=== PATIENT | female | born 1990 | race Caucasian/White ===

== ENCOUNTER 2018-12-27 05:26 | Inpatient (IN) | payer MEDICAID ==
[~2018-12-27] VITALS: Ht 172.7 cm; Wt 105.7 kg
[2018-12-27] VITALS (34 sets, daily range): BP systolic 4–135; BP diastolic -6–99
[~2018-12-27 05:26] MED LIST: LACTATED RINGERS 1,000 ML IV SCH
[2018-12-27] MEDS ORDERED: EPHEDRINE SULFATE 50MG/ML VIAL ONE (06:24)
[2018-12-27] MEDS ORDERED: LIDOCAINE HCL/PF 1% 10 MG/ML 5ML VIAL ONE (06:24)
[2018-12-27] MEDS ORDERED: PHENYLEPHRINE HCL 10 MG/ML 1ML (IV VIAL) IV ONE (06:24)
[2018-12-27] MEDS ORDERED: SODIUM CHLORIDE 0.9% 10ML VIAL ONE ×2 (06:24→06:39)
[2018-12-27] MEDS ORDERED: CEFAZOLIN SODIUM 1000MG/VIAL ONE (06:24)
[2018-12-27] MEDS ORDERED: PROPOFOL 200MG/20ML VIAL IV ONE ×2 (06:24→07:31)
[2018-12-27] MEDS ORDERED: SUCCINYLCHOLINE CHLORIDE 200MG/10ML IV ONE (06:24)
[2018-12-27] MEDS ORDERED: ROCURONIUM BROMIDE 10MG/ML VIAL 5ML IV ONE ×2 (06:25→07:42)
[2018-12-27] MEDS ORDERED: MIDAZOLAM HCL 2 MG/2 ML VIAL ONE (06:25)
[2018-12-27] MEDS ORDERED: FENTANYL CITRATE/PF 50MCG/ML 2ML VIAL ONE ×2 (06:25→07:55)
[2018-12-27 06:26] LABS: CLARITY URINE CLEAR (CLEAR); COLOR URINE YELLOW (YELLOW); KETONES URINE NEGATIVE (NEGATIVE); LEUKOCYTE ESTERASE URINE NEGATIVE (NEGATIVE); NITRITE URINE NEGATIVE (NEGATIVE); OCCULT BLOOD URINE NEGATIVE (NEGATIVE); PH URINE 6.5 (4.5-8.0); PROTEIN URINE NEGATIVE (NEGATIVE); SPECIFIC GRAVITY URINE 1.009 (1.005-1.030); UROBILINOGEN URINE 0.2 E.U./dL (0.2-1.0)
[2018-12-27] MEDS ORDERED: BACITRACIN 15GM TUBE TOP ONE (06:28)
[2018-12-27] MEDS ORDERED: LIDOCAINE HCL/EPINEPHRINE 1%-EPI 1:100,000 20 ML VIAL ONE (06:29)
[2018-12-27] MEDS ORDERED: BACITRACIN 50,000 UNITS/VIAL ONE (06:29)
[2018-12-27] MEDS ORDERED: NORMAL SALINE 0.9% 10 ML SYR ONE (06:29)
[2018-12-27] MEDS ORDERED: THROMBIN (BOVINE) 5000 UNITS/VIAL TOP ONE (06:29)
[2018-12-27 06:37] LABS: UCG SCREEN NEGATIVE
[2018-12-27] MEDS ORDERED: HYDRALAZINE 20MG/ML VIAL ONE (06:39)
[2018-12-27] MEDS ORDERED: LABETALOL HCL 5MG/ML VIAL 20ML IV ONE (06:40)
[2018-12-27] MEDS ORDERED: ONDANSETRON HCL 4MG/2ML INJ IV PRN (07:00)
[2018-12-27] MEDS ORDERED: MORPHINE SULFATE 4 MG/ML CPJ (NOT FOR IM USE) IV PRN (07:00)
[2018-12-27] MEDS ORDERED: LURA40TA PO (07:35)
[2018-12-27] MEDS ORDERED: METH-612 PO (07:35)
[2018-12-27] MEDS ORDERED: HYDR-459 PO (07:35)
[2018-12-27] MEDS ORDERED: DULO60CA44 PO (07:35)
[2018-12-27] MEDS ORDERED: TOPI50TA PO (07:35)
[2018-12-27] MEDS ORDERED: DEXAMETHASONE 4MG/ML 1ML VIAL ONE (07:35)
[2018-12-27] MEDS ORDERED: GABA-531 PO (07:35)
[2018-12-27] MEDS ORDERED: TRAM50TA3 PO (07:35)
[2018-12-27] MEDS ORDERED: GABA-290 PO (07:35)
[2018-12-27] MEDS ORDERED: BUSP10TA3 PO (07:35)
[2018-12-27] MEDS ORDERED: ONDANSETRON HCL 4MG/2ML INJ ONE (08:02)
[2018-12-27] MEDS ORDERED: METOCLOPRAMIDE HCL 10MG/2ML VIAL ONE (08:02)
[2018-12-27] MEDS ORDERED: GLYCOPYRROLATE 0.2 MG/ML 2ML VIAL ONE (08:33)
[2018-12-27] MEDS ORDERED: NEOSTIGMINE METHYLSULFATE 1MG/ML 10 ML VIAL ONE (08:33)
[2018-12-27] MEDS ORDERED: ESMOLOL HCL 10MG/ML 10ML VIAL IV ONE (08:38)
[2018-12-27] MEDS ORDERED: NICARDIPINE 100 MG in SODIUM CHLORIDE 0.9% 60 ML IV PRN (10:00)
[2018-12-27] MEDS ORDERED: IPRATROPIUM/ALBUTEROL 0.5-3(2.5)MG/3ML NEB HHN PRN (10:00)
[2018-12-27] MEDS: DEXT 5%/LACTATED RINGERS 1,000 ML IV SCH ×2 (10:02→17:12)
[2018-12-27] MEDS: IPRATROPIUM/ALBUTEROL 0.5-3(2.5)MG/3ML NEB HHN SCH ×4 (10:02→20:57)
[2018-12-27] MEDS ORDERED: IPRATROPIUM/ALBUTEROL 0.5-3(2.5)MG/3ML NEB ONE (10:03)
[2018-12-27] MEDS ORDERED: DIPHENHYDRAMINE INJ IV PRN (10:15)
[2018-12-27] MEDS ORDERED: NALOXONE INJ IV PRN (10:15)
[2018-12-27] MEDS ORDERED: ONDANSETRON INJ IV PRN (10:15)
[2018-12-27] MEDS: MORPHINE PCA 50MG/50ML IV PRN ×2 (10:53→23:55)
[2018-12-27] MEDS ORDERED: CLAR10 MT (12:11)
[2018-12-27] MEDS ORDERED: ALPR0.5T MT (12:11)
[2018-12-27] MEDS ORDERED: TRAM50TA3 MT (12:11)
[2018-12-27] MEDS ORDERED: LORATADINE 10MG TABLET PO PRN (13:30)
[2018-12-27] MEDS ORDERED: SODIUM CHLORIDE 45ML SPRAY NS PRN (14:00)
[2018-12-27] MEDS ORDERED: CEFAZOLIN SODIUM 1000MG/VIAL IV SCH (14:00)
[2018-12-27] MEDS: DULOXETINE HCL 30MG DR CAPSULE PO SCH (14:50)
[2018-12-27] MEDS: CEFAZOLIN 1000MG PREMIX 50 ML IV SCH ×2 (14:50→21:11)
[2018-12-27] MEDS: MONTELUKAST SODIUM 10MG TABLET PO SCH (17:11)
[2018-12-27] MEDS: BUSPIRONE HCL 10MG TABLET PO SCH (17:11)
[2018-12-27] MEDS: LATUDA 40 MG PO SCH (18:11)
[2018-12-27] MEDS: TOPIRAMATE 25MG TABLET PO SCH (21:11)
[2018-12-28] VITALS (45 sets, daily range): BP systolic 89–139; BP diastolic 41–85
[2018-12-28] MEDS: IPRATROPIUM/ALBUTEROL 0.5-3(2.5)MG/3ML NEB HHN SCH ×5 (00:27→16:10)
[2018-12-28] MEDS: DEXT 5%/LACTATED RINGERS 1,000 ML IV SCH ×4 (01:07→22:21)
[2018-12-28] MEDS: CEFAZOLIN 1000MG PREMIX 50 ML IV SCH ×3 (05:05→21:11)
[2018-12-28] MEDS ORDERED: HYDROCODONE/APAP 7.5/325MG 1 TAB TABLET PO PRN ×2 (05:30→08:00)
[2018-12-28] MEDS ORDERED: HYDROCODONE/APAP 7.5/325MG 1 TAB TABLET PO SCH (05:30)
[2018-12-28 05:31] LABS: HEMATOCRIT. 32.1 % (36.0-48.0); HEMOGLOBIN. 10.9 g/dL (12.0-16.0); LYMPHOCYTES % 11.6 % (20.0-50.0); MEAN CORPUSCULAR HEMOGLOBIN 29.8 pg (28.0-32.0); MEAN PLATELET VOLUME 9.7 fl (7.4-10.4); MONOCYTES % 6.5 % (2.0-8.0); NEUTROPHILS % 81.9 % (40.0-76.0); PLATELET 143 x1000/uL (130-400); RED BLOOD CELL COUNT 3.65 mill/uL (4.2-5.4); RED CELL DISTRIBUTION WIDTH 13.7 % (11.6-14.6)
[2018-12-28 05:33] LABS: CHLORIDE 109 mEq/L (98-107)
[2018-12-28 05:41] LABS: HDL CHOLESTEROL 45 mg/dL (40-59); LDL CHOLESTEROL 96 mg/dL (5-100)
[2018-12-28] MEDS ORDERED: SODIUM CHLORIDE 0.9% 500 ML IV NR (08:00)
[2018-12-28] MEDS: TOPIRAMATE 25MG TABLET PO SCH ×2 (08:24→21:11)
[2018-12-28] MEDS: DULOXETINE HCL 30MG DR CAPSULE PO SCH (08:25)
[2018-12-28] MEDS: BUSPIRONE HCL 10MG TABLET PO SCH ×2 (08:25→18:50)
[2018-12-28] MEDS: HYDROCODONE/APAP 7.5/325MG 1 TAB TABLET PO PRN ×2 (10:16→22:30)
[2018-12-28] MEDS ORDERED: TOPIRAMATE 25MG TABLET PO SCH (10:30)
[2018-12-28] MEDS ORDERED: MORPHINE SULFATE 2 MG/ML CPJ (NOT FOR IM USE) IV NR (13:31)
[2018-12-28] MEDS: MORPHINE PCA 50MG/50ML IV PRN (13:57)
[2018-12-28] MEDS: MONTELUKAST SODIUM 10MG TABLET PO SCH (18:50)
[2018-12-28] MEDS: LATUDA 40 MG PO SCH (18:50)
[2018-12-29] VITALS (32 sets, daily range): BP systolic 94–157; BP diastolic 48–87
[2018-12-29] MEDS: MORPHINE PCA 50MG/50ML IV PRN (01:26)
[2018-12-29] MEDS: DEXT 5%/LACTATED RINGERS 1,000 ML IV SCH ×2 (01:44→16:06)
[2018-12-29] MEDS: CEFAZOLIN 1000MG PREMIX 50 ML IV SCH ×2 (05:32→14:14)
[2018-12-29] MEDS: MORPHINE SULFATE 4 MG/ML CPJ (NOT FOR IM USE) IV PRN ×5 (07:09→16:46)
[2018-12-29] MEDS: TOPIRAMATE 25MG TABLET PO SCH ×2 (08:42→21:55)
[2018-12-29] MEDS: BUSPIRONE HCL 10MG TABLET PO SCH ×2 (08:42→16:39)
[2018-12-29] MEDS: DULOXETINE HCL 30MG DR CAPSULE PO SCH (08:42)
[2018-12-29] MEDS ORDERED: DOCUSATE SODIUM 250MG CAPSULE PO PRN (09:00)
[2018-12-29 11:52] LABS: HEMATOCRIT. 35.3 % (36.0-48.0); HEMOGLOBIN. 12.1 g/dL (12.0-16.0); MEAN CORPUSCULAR HEMOGLOBIN 29.9 pg (28.0-32.0); MEAN CORPUSCULAR VOLUME 87.6 fL (81.0-99.0); MEAN PLATELET VOLUME 9.5 fl (7.4-10.4); PLATELET 146 x1000/uL (130-400); RED BLOOD CELL COUNT 4.03 mill/uL (4.2-5.4); RED CELL DISTRIBUTION WIDTH 13.6 % (11.6-14.6)
[2018-12-29 12:34] LABS: CHLORIDE 108 mEq/L (98-107)
[2018-12-29 12:35] LABS: PLATELET ESTIMATE NORMAL
[2018-12-29] MEDS ORDERED: POTASSIUM CHLORIDE 20MEQ TABLET SR PO NR (13:00)
[2018-12-29 13:12] LABS: CLARITY URINE CLEAR (CLEAR); COLOR URINE YELLOW (YELLOW); KETONES URINE 1+ (NEGATIVE); LEUKOCYTE ESTERASE URINE NEGATIVE (NEGATIVE); NITRITE URINE NEGATIVE (NEGATIVE); OCCULT BLOOD URINE NEGATIVE (NEGATIVE); PROTEIN URINE TRACE (NEGATIVE); SPECIFIC GRAVITY URINE 1.012 (1.005-1.030); UROBILINOGEN URINE 0.2 E.U./dL (0.2-1.0)
[2018-12-29] MEDS: MONTELUKAST SODIUM 10MG TABLET PO SCH (16:39)
[2018-12-29] MEDS: LATUDA 40 MG PO SCH (16:41)
[2018-12-29] MEDS: HYDROCODONE/APAP 7.5/325MG 1 TAB TABLET PO PRN (18:32)
[2018-12-30] VITALS (12 sets, daily range): BP systolic 100–128; BP diastolic 50–80
[2018-12-30] MEDS: DEXT 5%/LACTATED RINGERS 1,000 ML IV SCH ×2 (02:13→11:16)
[2018-12-30] MEDS: MORPHINE SULFATE 4 MG/ML CPJ (NOT FOR IM USE) IV PRN ×4 (03:45→20:01)
[2018-12-30] MEDS: TOPIRAMATE 25MG TABLET PO SCH ×2 (08:34→21:44)
[2018-12-30] MEDS: DULOXETINE HCL 30MG DR CAPSULE PO SCH (08:34)
[2018-12-30 08:55] LABS: BASOPHILS % 0.2 % (0.0-2.0); EOSINOPHILS % 0.3 % (0.0-5.0); HEMATOCRIT. 33.9 % (36.0-48.0); HEMOGLOBIN. 11.6 g/dL (12.0-16.0); LYMPHOCYTES % 7.6 % (20.0-50.0); MEAN CORPUSCULAR HEMOGLOBIN 29.9 pg (28.0-32.0); MEAN PLATELET VOLUME 9.9 fl (7.4-10.4); MONOCYTES % 5.3 % (2.0-8.0); NEUTROPHILS % 86.6 % (40.0-76.0); PLATELET 152 x1000/uL (130-400); RED BLOOD CELL COUNT 3.89 mill/uL (4.2-5.4); RED CELL DISTRIBUTION WIDTH 13.7 % (11.6-14.6)
[2018-12-30 10:41] LABS: CHLORIDE 108 mEq/L (98-107)
[2018-12-30] MEDS: HYDROCODONE/APAP 7.5/325MG 1 TAB TABLET PO PRN ×2 (11:15→17:48)
[2018-12-30] MEDS: BUSPIRONE HCL 10MG TABLET PO SCH ×2 (11:16→17:48)
[2018-12-30] MEDS ORDERED: POTASSIUM CHLORIDE 20MEQ/PACKET PO NR (12:00)
[2018-12-30] MEDS: MONTELUKAST SODIUM 10MG TABLET PO SCH (17:48)
[2018-12-30] MEDS: LATUDA 40 MG PO SCH (17:48)
[2018-12-30] MEDS ORDERED: IOHEXOL-350 100 ML BOTTLE ONE (21:17)
[2018-12-31] VITALS (11 sets, daily range): BP systolic 86–122; BP diastolic 47–73
[2018-12-31] MEDS: DEXT 5%/LACTATED RINGERS 1,000 ML IV SCH (00:54)
[2018-12-31] MEDS: MORPHINE SULFATE 4 MG/ML CPJ (NOT FOR IM USE) IV PRN ×3 (01:19→18:25)
[2018-12-31 07:24] LABS: BASOPHILS % 0.4 % (0.0-2.0); EOSINOPHILS % 1.2 % (0.0-5.0); HEMATOCRIT. 31.5 % (36.0-48.0); HEMOGLOBIN. 10.9 g/dL (12.0-16.0); LYMPHOCYTES % 15.7 % (20.0-50.0); MEAN CORPUSCULAR HEMOGLOBIN 30.2 pg (28.0-32.0); MEAN CORPUSCULAR VOLUME 87.4 fL (81.0-99.0); MEAN PLATELET VOLUME 9.3 fl (7.4-10.4); MONOCYTES % 6.1 % (2.0-8.0); NEUTROPHILS % 76.6 % (40.0-76.0); PLATELET 171 x1000/uL (130-400); RED CELL DISTRIBUTION WIDTH 13.3 % (11.6-14.6)
[2018-12-31 07:50] LABS: CHLORIDE 109 mEq/L (98-107)
[2018-12-31] MEDS ORDERED: PNEUMOCOCCAL 23-VAL P-SAC VAC 0.5 ML IM ONE (08:00)
[2018-12-31] MEDS: TOPIRAMATE 25MG TABLET PO SCH ×2 (08:36→20:52)
[2018-12-31] MEDS: BUSPIRONE HCL 10MG TABLET PO SCH ×2 (08:36→17:18)
[2018-12-31] MEDS: DULOXETINE HCL 30MG DR CAPSULE PO SCH (08:36)
[2018-12-31] MEDS: HYDROCODONE/APAP 7.5/325MG 1 TAB TABLET PO PRN ×2 (09:12→20:53)
[2018-12-31] MEDS ORDERED: INFLUENZA VIRUS VACCINE(AFLURIA) 0.5ML SYR IM ONE (10:00)
[2018-12-31] MEDS: LATUDA 40 MG PO SCH (17:18)
[2018-12-31] MEDS: MONTELUKAST SODIUM 10MG TABLET PO SCH (17:18)
[2019-01-01] VITALS (10 sets, daily range): BP systolic 110–131; BP diastolic 33–76
[2019-01-01 06:22] LABS: BASOPHILS % 0.5 % (0.0-2.0); EOSINOPHILS % 2.5 % (0.0-5.0); HEMATOCRIT. 31.4 % (36.0-48.0); HEMOGLOBIN. 10.9 g/dL (12.0-16.0); LYMPHOCYTES % 19.8 % (20.0-50.0); MEAN CORPUSCULAR VOLUME 86.5 fL (81.0-99.0); MEAN PLATELET VOLUME 8.1 fl (7.4-10.4); MONOCYTES % 9.2 % (2.0-8.0); PLATELET 222 x1000/uL (130-400); RED BLOOD CELL COUNT 3.63 mill/uL (4.2-5.4); RED CELL DISTRIBUTION WIDTH 13.3 % (11.6-14.6)
[2019-01-01 06:24] LABS: CHLORIDE 110 mEq/L (98-107)
[2019-01-01] MEDS: MORPHINE SULFATE 4 MG/ML CPJ (NOT FOR IM USE) IV PRN ×3 (06:48→14:11)
[2019-01-01] MEDS: DULOXETINE HCL 30MG DR CAPSULE PO SCH (08:41)
[2019-01-01] MEDS: TOPIRAMATE 25MG TABLET PO SCH (08:41)
[2019-01-01] MEDS: BUSPIRONE HCL 10MG TABLET PO SCH (08:41)
== END 2019-01-01 16:15 | disposition home or self-care (01) | DRG 304 ==
LOC: OR 05:26 → MICUSO 05:27 → 5EST 12-29 17:10
PROVIDERS: ADMIT Internal Medicine; ATTEND Internal Medicine
PROC: 0SG3071 Fusion of Lumbosacral Joint with Autologous Tissue Substitute, Posterior Approach, Posterior Column, Open Approach (ICD-10-PCS; principal; 2018-12-27)
DX: M47.817 Spondylosis without myelopathy or radiculopathy, lumbosacral region (principal); J96.00 Acute respiratory failure, unspecified whether with hypoxia or hypercapnia; E66.01 Morbid (severe) obesity due to excess calories; J45.901 Unspecified asthma with (acute) exacerbation; Q79.60 Ehlers-Danlos syndrome, unspecified; M43.17 Spondylolisthesis, lumbosacral region; M48.07 Spinal stenosis, lumbosacral region; F32.9 Major depressive disorder, single episode, unspecified; F41.9 Anxiety disorder, unspecified; J31.0 Chronic rhinitis; G43.909 Migraine, unspecified, not intractable, without status migrainosus; Z82.49 Family history of ischemic heart disease and other diseases of the circulatory system; Z91.5 Personal history of self-harm; Z71.3 Dietary counseling and surveillance; Z68.35 Body mass index [BMI] 35.0-35.9, adult
CPT/HCPCS: 36415; 71045; 71275; 72100; 76000; 80048; 80061; 80076; 81003; 81025; 83036; 85379; 86850; 86900; 93005; 93306; 93970; 94003; 94640; 95863; 95925; 95926; 95928; 95929; 97110; 97112; 97116; 97162; 97166; 97530; 97535; 97760; C1713; J0330; J0360; J0690; J1100; J2250; J2270; J2370; J2405; J2704; J2710; J2765; J3010; J3490; J7040; J7121; J7620; Q9967